=== PATIENT | female | born 1990 ===

== ENCOUNTER 2020-04-30 04:39 | Inpatient (IN) | payer BC, OTHER ==
[2020-04-30] VITALS (64 sets, daily range): BP systolic 0–145; BP diastolic 0–79
[~2020-04-30] VITALS: Ht 152.4 cm; Wt 75.1 kg
[~2020-04-30 04:39] MED LIST: BENZ56AE TP; CEPH500C PO; IBP600T1 PO; PREN1TAB19 PO
--- NOTE | 2020-04-30 04:47 | NUR ---
OZZY MORENO presented to unit via ambulatory from ED, accompanied by adult female, with c/o CONTRACTIONS. OZZY MORENO weighed, gowned, voided, and to bed. EFHM and TOCO applied, VS taken. OZZY MORENO oriented to bed controls, call light, TV, heat, and A/C controls. above and further assessements compelted per shelly stern
--- NOTE | 2020-04-30 05:06 | NUR ---
Dr. Dawn called and updated regarding pt's status, admit orders received.
[2020-04-30] MEDS ORDERED: MINERAL OIL CONCENTRATE 99.9% 15 ML UDC TOP PRN (05:15)
[2020-04-30 05:31] LABS: BASOPHILS % (AUTO) 0 % (0-10); BILIRUBIN,URINE NEGATIVE (NEGATIVE); CLARITY,URINE CLEAR; COLOR,URINE YELLOW; EOSINOPHILS # (AUTO) 0.5 10^3/uL (0.0-0.3); EOSINOPHILS % (AUTO) 4 % (0-10); GLUCOSE, URINE (UA) NEGATIVE (NEGATIVE); HEMATOCRIT 39 % (35-52); HEMOGLOBIN 12.4 g/dL (11.5-16.0); KETONES,URINE NEGATIVE (NEGATIVE); LEUKOCYTE ESTERASE ,URINE NEGATIVE (NEGATIVE); LYMPHOCYTES # (AUTO) 1.8 10^3/uL (1.0-4.0); LYMPHOCYTES % (AUTO) 18 % (12-44); MEAN CORPUSCULAR HEMOGLOBIN 28 pg (25-34); MEAN CORPUSCULAR HGB CONC 32 g/dL (32-36); MEAN CORPUSCULAR VOLUME 87 fL (80-99); MEAN PLATELET VOLUME 9.8 fL (9.0-12.2); MONOCYTES # (AUTO) 0.6 10^3/uL (0.0-1.0); MONOCYTES % (AUTO) 6 % (0-12); NEUTROPHILS # (AUTO) 7.4 10^3/uL (1.8-7.8); NEUTROPHILS % (AUTO) 71 % (42-75); NITRITE,URINE NEGATIVE (NEGATIVE); PLATELET COUNT 266 10^3/uL (130-400); PROTEIN,URINE NEGATIVE (NEGATIVE); WHITE BLOOD COUNT 10.4 10^3/uL (4.3-11.0)
[2020-04-30 05:40] LABS: BACTERIA,URINE MODERATE /HPF
[2020-04-30] MEDS ORDERED: LACTATED RINGERS 1,000 ML IV SCH (06:00)
[2020-04-30] MEDS ORDERED: CATHETER FLUSH 10 ML SYR IV SCH ×2 (06:00→22:00)
[2020-04-30] MEDS: D5 LR IV SOLUTION 1,000 ML IV SCH ×2 (06:11→13:07)
[2020-04-30] MEDS ORDERED: fentaNYL 2 mcg/ml BUPIVA 0.125 100 ML ONE ×2 (06:25→15:23)
[2020-04-30] MEDS ORDERED: OXYTOCIN PRE-MIX DRIP 500 ML IV ONE (06:28)
--- NOTE | 2020-04-30 06:29 | NUR ---
Dr. Dawn updated on Tony hilario CHANGE MANAGEMENT MANAGER called for epidural placement.
--- NOTE | 2020-04-30 06:40 | NUR ---
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
[2020-04-30] MEDS ORDERED: LIDOCAINE PF 2% 5 ML (XYLOCAINE) VIAL ONE (06:48)
[2020-04-30] MEDS ORDERED: BUPIVACAINE 0.25% 30 ML (SENSORCAINE) VIAL ONE (06:48)
[2020-04-30] MEDS ORDERED: fentaNYL INJECTION 100 MCG/2 ML AMP ONE (06:48)
--- NOTE | 2020-04-30 06:52 | NUR ---
Tony Simmons CRNA in room.
--- NOTE | 2020-04-30 07:17 | NUR ---
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 Procedure explained, consent reviewed and signed by anesthesia. Questions answered to patient's satisfaction. Time out taken to verify correct patient/procedure. Patient up to side of bed, assisted into sitting position. Betadine prep done x3 and sterile drape applied. Local done, see anesthesia record. Test dose given, see anesthesia record for drug and dosage. Epidural catheter secured in place. Epidural placement complete. Assisted back into bed, monitors adjusted. Epidural dosed, see anesthesia record. Epidural of Sufenta/Bupvicaine @__12____cc/hr stated per pump. Patient tolerated procedure well.
--- NOTE | 2020-04-30 07:21 | History & Physical-OB/GYN ---
DREWCHELY Matute MED STUDENT 04/30/20 0721: OB - Chief Complaint & HPI Date/Time Date of Admission: Date of Admission: Apr 30, 2020 at 05:06 Date seen by a Provider: Apr 30, 2020 Chief Complaint/History OB-Reason for Admission/Chief: Onset of Labor Hx : 2 Hx Para: 1 Expected Date of Delivery: May 03, 2020 Gestational Age in Weeks: 39 Gestational Age in Days: 4 Admission Nurse Assessment Rev: Yes Allergies and Home Medications Allergies Coded Allergies: No Known Drug Allergies (Unverified , 02/16/14) Home Medications Vit/Fe Fumarate/Fa 1 Each Tablet, 1 EACH PO DAILY, (Reported) Patient Home Medication List Home Medication List Reviewed: Yes OB - History Hx of Present Care: Yes Ultrasounds: Normal mid trimester US Obstetrical Complications: None Medical Complications: None Information Induced Hypertension: No Maternal Gestational Diabetes: No Hemorrhage: No Obstetrical History Hx : 2 Hx Para: 1 Hx Termination: No Hx Total # of Abortions (Spona: 0 Hx Multiple Gestation: No Hx Ectopic : No Hx Stillbirth: No Hx Complication: No Hx Induced Hypertens: No Hx Maternal Gestational Diabet: No Hx Hemorrhage: No Delivery History Hx Large For Gestational Age I: No Hx Blood Disorders: No Adverse Rxn to Tranfusion: No Patient Past Medical History PMH: Pyelonephritis treated during PSH: Appendectomy 1998 Social History/Family History Sexually Transmitted Disease: No Alcohol Use: Denies Use Recreational Drug Use: No Smoking Cessation: Never smoker 2nd Hand Smoke Exposure: No Immunizations Tetanus Booster (TDap): Less than 5yrs Date of Influenza Vaccine: Feb 29, 2020 Rubella: immune RPR/VDRL: Negative GBS Status: Negative HBsAG: Negative OB - Admission Exam Physical Exam Vitals: Vital Signs 04/30/20 07:12 Pulse 84 Resp 18 B/P (MAP) 116/57 (76) Pulse Ox 99 O2 Delivery Room Air HEENT: Eyes non-injected Heart: Rhythm Normal Lungs: Clear Abdomen: Non tender Extremities: Normal Cervical Dilatation: 5cm Effacement: 100% Station: -1 Membranes: Intact Heart Rate: 140's Accelerations: Accelerations Present Decelerations: No Decelerations Short Term Variability: Present Care Home Variability: Average (6-25) Contractions on Admission: < 5 Minutes Apart Intensity: Moderate Labs Laboratory Tests Test 12/17/20 05:20 04/30/20 05:30 Range/Units White Blood Count 10.4 4.3-11.0 10^3/uL Red Blood Count 4.47 3.80-5.11 10^6/uL Hemoglobin 12.4 11.5-16.0 g/dL Hematocrit 39 35-52 % Mean Corpuscular Volume 87 80-99 fL Mean Corpuscular Hemoglobin 28 25-34 pg Mean Corpuscular Hemoglobin Concent 32 32-36 g/dL Red Cell Distribution Width 13.1 10.0-14.5 % Platelet Count 266 130-400 10^3/uL Mean Platelet Volume 9.8 9.0-12.2 fL Immature Granulocyte % (Auto) 1 % Neutrophils (%) (Auto) 71 42-75 % Lymphocytes (%) (Auto) 18 12-44 % Monocytes (%) (Auto) 6 0-12 % Eosinophils (%) (Auto) 4 0-10 % Basophils (%) (Auto) 0 0-10 % Neutrophils # (Auto) 7.4 1.8-7.8 10^3/uL Lymphocytes # (Auto) 1.8 1.0-4.0 10^3/uL Monocytes # (Auto) 0.6 0.0-1.0 10^3/uL Eosinophils # (Auto) 0.5 H 0.0-0.3 10^3/uL Basophils # (Auto) 0.0 0.0-0.1 10^3/uL Immature Granulocyte # (Auto) 0.1 0.0-0.1 10^3/uL Urine Color YELLOW Urine Clarity CLEAR Urine pH 7.0 5-9 Urine Specific [place] 1.015 L 1.016-1.022 Urine Protein NEGATIVE NEGATIVE Urine Glucose (UA) NEGATIVE NEGATIVE Urine Ketones NEGATIVE NEGATIVE Urine Nitrite NEGATIVE NEGATIVE Urine Bilirubin NEGATIVE NEGATIVE Urine Urobilinogen 0.2 < = 1.0 MG/DL Urine Leukocyte Esterase NEGATIVE NEGATIVE Urine RBC (Auto) NEGATIVE NEGATIVE Urine RBC NONE /HPF Urine WBC NONE /HPF Urine Squamous Epithelial Cells 5-10 /HPF Urine Crystals NONE /LPF Urine Bacteria MODERATE H /HPF Urine Casts NONE /LPF Urine Mucus NEGATIVE /LPF Urine Culture Indicated NO OB - Assessment/Plan/Diagnosis Assessment Assessment: active labor Admission Dx spontaneous onset of labor without membrane rupture. Reason for Inpatient Admission: Active labor Plan Plan: Expectant Management GRECIA LINK MD 04/30/20 1034: OB - Chief Complaint & HPI Date/Time Time Seen by a Provider: 07:45 Allergies and Home Medications Allergies Coded Allergies: No Known Drug Allergies (Unverified , 02/16/14) Home Medications Vit/Fe Fumarate/Fa 1 Each Tablet, 1 EACH PO DAILY, (Reported) Patient Home Medication List Home Medication List Reviewed: Yes OB - Assessment/Plan/Diagnosis Assessment Admission Status: Inpatient Order (span 2 midnights) Reason for Inpatient Admission: Labor, delivery and course Supervisory-Addendum Brief Verification & Attestation Participated in pt care: history, MDM, physical Personally performed: exam, history, MDM Care discussed with: Medical Student Procedures: n/a I personally saw and examined patient today and agree with documentation by the medical student. complicated by first trimester COVID infection and subclinical hyperthyroidism not requiring treatment. CHELY DREW MED STUDENT Apr 30, 2020 07:21 GRECIA LINK MD Apr 30, 2020 10:34
--- NOTE | 2020-04-30 07:45 | NUR ---
A.M. ASSESSMENT COMPLETED. VSS. SEE LABOR FLOW SHEET.
[2020-04-30] MEDS: OXYTOCIN PRE-MIX DRIP 500 ML IV SCH ×2 (10:39→16:42)
[2020-04-30] MEDS ORDERED: LIDOCAINE/EPI 2% 1:200,00 (XYLOCAINE) 10 ML VIAL ONE (15:12)
--- NOTE | 2020-04-30 16:31 | OB Labor & Delivery Record ---
Vag Delivery Note Vag Delivery Note Date of Delivery: 04/30/20 Preoperative Diagnosis: Trever Garcia is a (30 /Para 2 / 1, Gestational Age (wks)39with 4 days Postoperative Diagnosis: Same Surgeon: GRECIA LINK Morning Show Producer: Faviola Coe, MS3 Anesthesia: Epidural Delivery Type: Findings: Viable female , apgars 7/9, weight 8#5 Lacerations: first degree perineal Intact placenta with 3 vessel cord. No nuchal cord, body cord or shoulder dystocia Estimated Blood Loss: 250 ml Complications: None Condition: Stable Description of Procedure: The patient is a 30 year old female who presented in active labor. She was admitted and informed consent was obtained. Her labor course was remarkable for meconium stained fluid, slow first stage augmented with pitocin. She progressed to complete dilatation and began to push. She was then set up for delivery. The 's head was delivered atraumatically in the DEMARCUS position. The shoulders and remainder of the 's body were then delivered without difficulty. Upon delivery, the was placed on maternal abdomen and the cord was doubly clamped and cut and the infant was handed off to the pediatric staff. An intact placenta with 3-vessel cord delivered via Vaishnavi and there was found to be minimal bleeding.~ Vigorous fundal massage was performed and the fundus was found to be firm. IV oxytocin was given. Examination of the vagina and perineum revealed a first degree perineal laceration repaired in the simple running fashion with 3-0 vicryl rapide suture. Following the repair, sponge, instrument and needle counts were correct. Mom and baby were both in stable condition in the labor suite. Vitals - Labs Vital Signs - I&O Vital Signs Date Time Temp Pulse Resp B/P (MAP) Pulse Ox O2 Delivery O2 Flow Rate FiO2 04/30/20 07:12 84 18 116/57 (76) 99 Room Air 04/30/20 07:10 93 18 120/67 (84) 99 Room Air 04/30/20 07:09 89 18 120/67 (84) 99 Room Air 04/30/20 07:06 88 18 120/64 (82) 99 Room Air 04/30/20 07:04 87 18 122/59 (80) 100 Room Air 04/30/20 06:59 83 18 127/64 (85) 99 Room Air 04/30/20 06:50 37.1 04/30/20 06:50 37.0 81 18 100 Room Air 04/30/20 06:47 81 18 128/67 (87) 100 Room Air 04/30/20 04:57 37.0 0 18 0 Room Air I & O 04/30/20 06:59 Intake Total 1000 ml Balance 1000 ml Labs Laboratory Tests 04/30/20 05:20: White Blood Count 10.4, Red Blood Count 4.47, Hemoglobin 12.4, Hematocrit 39, Mean Corpuscular Volume 87, Mean Corpuscular Hemoglobin 28, Mean Corpuscular Hemoglobin Concent 32, Red Cell Distribution Width 13.1, Platelet Count 266, Mean Platelet Volume 9.8, Immature Granulocyte % (Auto) 1, Neutrophils (%) (Auto) 71, Lymphocytes (%) (Auto) 18, Monocytes (%) (Auto) 6, Eosinophils (%) (Auto) 4, Basophils (%) (Auto) 0, Neutrophils # (Auto) 7.4, Lymphocytes # (Auto) 1.8, Monocytes # (Auto) 0.6, Eosinophils # (Auto) 0.5H, Basophils # (Auto) 0.0, Immature Granulocyte # (Auto) 0.1, Urine Color YELLOW, Urine Clarity CLEAR, Urine pH 7.0, Urine Specific [address] 1.015L, Urine Protein NEGATIVE, Urine Glucose (UA) NEGATIVE, Urine Ketones NEGATIVE, Urine Nitrite NEGATIVE, Urine Bilirubin NEGATIVE, Urine Urobilinogen 0.2, Urine Leukocyte Esterase NEGATIVE, Urine RBC (Auto) NEGATIVE, Urine RBC NONE, Urine WBC NONE, Urine Squamous Epithelial Cells 5-10, Urine Crystals NONE, Urine Bacteria MODERATEH, Urine Casts NONE, Urine Mucus NEGATIVE, Urine Culture Indicated NO 04/30/20 05:30: Coronavirus (COVID-19)(PCR) Negative GRECIA LINK MD Apr 30, 2020 16:31
[2020-04-30] MEDS ORDERED: TETANUS,DIPTH,PERTUSS P/F (BOOSTRIX) 0.5 ML VIAL IM ONE (17:00)
[2020-04-30] MEDS ORDERED: MEASLES,MUMPS,RUBELLA 1 EA INJ SQ ONE (17:00)
[2020-04-30] MEDS ORDERED: OXYTOCIN PRE-MIX DRIP 500 ML IV SCH (17:00)
[2020-04-30] MEDS ORDERED: BENZOCAINE/MENTHOL (DERMOPLAST) 60 ML CAN TP PRN (17:00)
[2020-04-30] MEDS ORDERED: WITCH HAZEL(TUCKS) 40 EA JAR TOP PRN (17:00)
[2020-04-30] MEDS ORDERED: LACTATED RINGERS 1,000 ML IV ONE (17:45)
[2020-04-30] MEDS ORDERED: fentaNYL 2 mcg/ml BUPIVA 0.125 100 ML IV SCH (17:45)
[2020-04-30] MEDS ORDERED: NALOXONE 0.4 MG/ML 1 ML (NARCAN) VIAL IV PRN (17:45)
[2020-04-30] MEDS: IBUPROFEN 600 MG (MOTRIN) TAB PO SCH ×2 (17:45→23:56)
[2020-04-30] MEDS ORDERED: CATHETER FLUSH 10 ML SYR IV PRN (17:45)
--- NOTE | 2020-04-30 17:45 | NUR ---
EATING DINNER. PLACED IN CRIB. PERICARE PERFORMED. DERMAPLAST SPRAY AND TUCKS TO PERINEUM. REFUSED ICE PACK. FF U/1. VAG FLOW LT/MOD RUBRA.
--- NOTE | 2020-04-30 18:15 | NUR ---
PT WAS SITTING ON THE SIDE OF THE BED WHEN ENTERED ROOM. HAD PUT OWN UNDERWEAR ON AND SMEARED BLOOD ON SHEETS. STOOD PT UP TO CHANGE PADS AND GOWN CHANGE. ABLE TO BEAR WEIGHT TO STAND BUT UNABLE TO AMBULATE YET. PT HAD DRESSED INFANT. FF U/1. VAG FLOW LT/MOD RUBRA. PERICARE WITH DISPOSABLE UNDERWEAR APPLIED. DERMAPLAST AND TUCKS APPLIED. DENIES URGE TO VOID. BLADDER FILLING. INFORMED NOT TO GET UP WITHOUT RN. M-I-L AT BEDSIDE.
--- NOTE | 2020-04-30 18:45 | NUR ---
REMAINS IN ROOM CARING FOR .
--- NOTE | 2020-04-30 20:20 | NUR ---
Pt ambulates to bathroom, standby assist with + void.
--- NOTE | 2020-04-30 20:35 | NUR ---
Pt transferred to PP room 312 via wheelchair accompanied by support person, , RN, and all personal belongings. Pt oriented to new room. Denies any needs or concerns at this time.
--- NOTE | 2020-04-30 20:39 | NUR ---
Pt assessment completed. VSS. Pt has light rubra lochia, with no clots expressed. Requesting sandwich tray at this time. Encouraged to call if she needs assistance to the bathroom. Denies any needs or concerns at this time.
[2020-04-30] MEDS: DOCUSATE SODIUM 100 MG (COLACE) CAP PO SCH (20:42)
[2020-05-01 03:51] VITALS: BP 103/62
[2020-05-01] MEDS: IBUPROFEN 600 MG (MOTRIN) TAB PO SCH ×3 (06:06→17:55)
--- NOTE | 2020-05-01 06:50 | Anesthesia-Regional Post-Op ---
Regional Patient Condition Mental Status: Alert, Oriented x3 Circulation: Same as Pre-Op Headache: Absent Sensation: Full Recovery Motor Block: Absent Post Op Complications Complications None Follow Up Care/Instructions Patient Instructions None needed. Anesthesia/Patient Condition Patient is doing well, no complaints, stable vital signs, no apparent adverse anesthesia problems. No complications reported per nursing. D/C home per [facility] Criteria: SUZANNE Ayon CRNA May 01, 2020 06:50
[2020-05-01 06:56] LABS: BASOPHILS % (AUTO) 0 % (0-10); EOSINOPHILS # (AUTO) 0.4 10^3/uL (0.0-0.3); EOSINOPHILS % (AUTO) 3 % (0-10); HEMATOCRIT 34 % (35-52); HEMOGLOBIN 10.6 g/dL (11.5-16.0); LYMPHOCYTES # (AUTO) 2.4 10^3/uL (1.0-4.0); LYMPHOCYTES % (AUTO) 20 % (12-44); MEAN CORPUSCULAR HEMOGLOBIN 28 pg (25-34); MEAN CORPUSCULAR HGB CONC 31 g/dL (32-36); MEAN CORPUSCULAR VOLUME 89 fL (80-99); MEAN PLATELET VOLUME 9.9 fL (9.0-12.2); MONOCYTES # (AUTO) 0.7 10^3/uL (0.0-1.0); MONOCYTES % (AUTO) 6 % (0-12); NEUTROPHILS # (AUTO) 8.6 10^3/uL (1.8-7.8); NEUTROPHILS % (AUTO) 70 % (42-75); PLATELET COUNT 226 10^3/uL (130-400); WHITE BLOOD COUNT 12.2 10^3/uL (4.3-11.0)
[2020-05-01 10:00] VITALS: BP 130/65
--- NOTE | 2020-05-01 10:00 | NUR ---
initial shift assessment completed, see interventions for further.
--- NOTE | 2020-05-01 12:29 | Short Stay Summary ---
Discharge Summary Hospital Course Problems/Dx: (1) Status post vaginal delivery Assessment & Plan: at 39w4d following JASON 1st degree perineal laceration Routine course Final Diagnosis: see Problem List Hospital Course Date of Admission: Apr 30, 2020 at 05:06 Date of Discharge: 05/01/20 Labs and Pending Lab Test: Laboratory Tests 05/01/20 06:30: White Blood Count 12.2H, Red Blood Count 3.86, Hemoglobin 10.6L, Hematocrit 34L, Mean Corpuscular Volume 89, Mean Corpuscular Hemoglobin 28, Mean Corpuscular Hemoglobin Concent 31L, Red Cell Distribution Width 13.3, Platelet Count 226, Mean Platelet Volume 9.9, Immature Granulocyte % (Auto) 1, Neutrophils (%) (Auto) 70, Lymphocytes (%) (Auto) 20, Monocytes (%) (Auto) 6, Eosinophils (%) (Auto) 3, Basophils (%) (Auto) 0, Neutrophils # (Auto) 8.6H, Lymphocytes # (Auto) 2.4, Monocytes # (Auto) 0.7, Eosinophils # (Auto) 0.4H, Basophils # (Auto) 0.0, Immature Granulocyte # (Auto) 0.1 Home Meds Active Reported Vitamins Tablet ( Vit/Fe Fumarate/Fa) 1 Each Tablet 1 Each PO DAILY Assessment/Pt Instructions follow up with Dr. Dawn in 6 wk Discharge Instructions Discharge Diet: No Restrictions Activity as Tolerated: Yes Discharge Physical Examination General Appearance: Alert, Oriented X3, Cooperative Psych/Mental Status: Mood NL Allergies: Coded Allergies: No Known Drug Allergies (Unverified , 02/16/14) Discharge Summary Date of Admission Apr 30, 2020 at 05:06 Date of Discharge YAIR DONG DO May 01, 2020 12:29
[2020-05-01] MEDS: DOCUSATE SODIUM 100 MG (COLACE) CAP PO SCH (12:45)
--- NOTE | 2020-05-01 17:06 | NUR ---
was called with 5.0 bili level. dismissal orders received. Addendum: 05/01/20 at 1707 by JODI DUVALL RN error wrong chart.
--- NOTE | 2020-05-01 17:43 | NUR ---
dismissal instructions given, verbalizes understanding via TUTU, who is translating. reviewed OTC mediations for pain and follow up appointment. signature paged signed, placed on chart.
--- NOTE | 2020-05-01 18:25 | NUR ---
patient dismissed to private vehicle with infant in arms. this RN and MIL @ side. infant secured into rear facing car seat upon arrival to vehicle. pt stable with no sx's of distress noted.
== END 2020-05-01 18:25 | disposition home or self-care (01) | DRG 807 ==
LOC: WSo 04:39 → LDRP 04:39 → WSo 05:05 → LDRP 05:06
PROVIDERS: ADMIT Family Medicine; ATTEND Family Medicine
PROC: 10E0XZZ Delivery of Products of Conception, External Approach (ICD-10-PCS; principal; 2020-04-30)
PROC: 0HQ9XZZ Repair Perineum Skin, External Approach (ICD-10-PCS; 2020-04-30)
DX: O80 Encounter for full-term uncomplicated delivery (principal); Z37.0 Single live birth; Z3A.39 39 weeks gestation of pregnancy; O70.0 First degree perineal laceration during delivery; Z20.828 Contact with and (suspected) exposure to other viral communicable diseases
CPT/HCPCS: 36415; 81000; 85025; 86850; 86900; 86901; 87635; 99212